=== PATIENT | male | born 1955 | race Caucasian/White ===

== ENCOUNTER → 2016-05-21 | Day surgery (SDC) | payer BC ==
[~2016-05-21] MED LIST: ALBUTEROL17 GM INH; ASPIRIN81 M2 PO; CORTISONE CREAM; DOXYCYCLINE; ELMIRON100 MG PO; ENBREL50 MG/M1 SUBQ; ENSTILAR 0.005%60 GM TOP; FLOMAX0.4 M1 PO; OMEGA 3 FISH1 CAP.EC PO; TUMS; TUMS500 M1 PO
--- NOTE | ~2016-05-21 | OR ---
Unit #: [id number] #: [id number] Patient: SAUL BATRES [id number] [address] [place], [place] [address] [id number] O MR#: [id number] NAME: SAUL BATRES ROOM: Date of Procedure: 05/21/2016 Admission Date: 05/21/2016 Surgeon: Elbert Adams M.D. : 1955 Attending Physician: Elbert Adams M.D. Primary Care Physician: Betty Vaughn M.D. OPERATIVE REPORT PRIMARY CARE PHYSICIAN Betty Vaughn M.D. PREOPERATIVE DIAGNOSIS Colorectal cancer screening in an average-risk patient. PROCEDURE PERFORMED Colonoscopy up to cecum with fair prep and visualization. POSTOPERATIVE DIAGNOSES The patient had mild sigmoid and descending colon diverticulosis. Otherwise, examination was normal up to cecum. The quality of the prep was fair. The patient had thin film of stool residue in the right colon, which had to be frequently washed and suctioned. As a result, diminutive polyps in this area could have been missed; however, no sizable polyps or colon cancer could have been missed. RECOMMENDATIONS Repeat colonoscopy in 5 years. SEDATION USED MAC. DESCRIPTION OF PROCEDURE Following detailed explanation of potential risks and complications of a colonoscopy, namely perforation, bleeding, and complications related to sedation, the patient was brought to GI lab and laid in the left lateral decubitus position. A digital rectal examination was performed, which was normal. Lubricated tip of the Olympus video colonoscope was inserted through the anus and advanced under direct vision. The scope was advanced past rectosigmoid into descending colon. A small to medium sized diverticula were seen scattered in this area. The scope tip was then navigated all the way up to cecum with visualization of the ileocecal valve and the appendiceal orifice. Preparation was fair with good visualization and photodocumentation was obtained. The patient had thin film of stool residue, which had to be frequently washed and suctioned in the right colon. Successive segments of the colonic mucosa were examined upon withdrawal and appeared unremarkable except for presence of diverticula seen in the left side. The patient did not have any polyps nor any angiodysplasias. No hemorrhoids were seen at the anal verge. The scope was then withdrawn and the patient returned to recovery area. He tolerated the procedure without any postprocedure complications. Unit #: [id number] #: [id number] Patient: SAUL BATRES Dictated by.Braden Diaz/wally TD: 05/21/2016 21:38 JOB #: [id number] OPERATIVE REPORT X Elbert Adams MD X PROCEDURE OPERATIVE NOTE
== END | disposition home or self-care (01) ==
LOC: COPS 06:55
PROVIDERS: Internal Medicine Gastroenterology
PROC: 0DJD8ZZ Inspection of Lower Intestinal Tract, Via Natural or Artificial Opening Endoscopic (ICD-10-PCS; principal; 2016-05-21 08:30)
DX: Z12.11 Encounter for screening for malignant neoplasm of colon (principal); K57.30 Diverticulosis of large intestine without perforation or abscess without bleeding; Z80.0 Family history of malignant neoplasm of digestive organs; K21.9 Gastro-esophageal reflux disease without esophagitis; E11.9 Type 2 diabetes mellitus without complications; N40.0 Benign prostatic hyperplasia without lower urinary tract symptoms; N30.10 Interstitial cystitis (chronic) without hematuria; I71.4 Abdominal aortic aneurysm, without rupture; L40.9 Psoriasis, unspecified; Z79.899 Other long term (current) drug therapy; Z79.82 Long term (current) use of aspirin; Z79.2 Long term (current) use of antibiotics; J45.909 Unspecified asthma, uncomplicated; Z88.0 Allergy status to penicillin; Z88.8 Allergy status to other drugs, medicaments and biological substances; Z96.652 Presence of left artificial knee joint
CPT/HCPCS: 82947; J2250

== ENCOUNTER → 2016-11-04 | Outpatient (CLI) | payer BC ==
--- NOTE | ~2016-11-04 | CT57 ---
[facility] A Service of [facility] & [facility] RADIOLOGY TEXT RESULTS PATIENT: SAUL BATRES LOCATION: [facility] : 57 UNIT #: [id number] AGE: [address]: Wander Jacob MD SEX: M ORDER DR: [id number] [facility] [address] [place], [place] [address] [id number] O MR#: [id number] [facility] #: [id number] NAME: SAUL BATRES : 1955 SEX: M STUDY DATE/TIME: 11/04/2016 13:37 UNIT: [facility] ROOM: STUDY DESCRIPTION: CT Chest Wo Cont Attending Physician: Wander Jacob M.D. Referring Physician: Wander Jacob M.D. Ordering Physician: Wander Jacob M.D. Primary Care Physician: Betty Vaughn M.D. MEDICAL IMAGING REPORT This report is preliminary unless electronic signature is present EXAM CT of the chest without contrast INDICATIONS Aortic aneurysm. Comparison is made to last year's exam from October 21, 2015. TECHNIQUE Axial CT images were obtained from the thoracic inlet through the dome of the diaphragm. No intravenous contrast material was administered. This CT exam was performed with one or more of the following radiation dose reduction techniques: Automatic exposure control, adjustment of mA and/or kV according to patient size, and iterative reconstruction. FINDINGS Ascending thoracic aorta is stable in size at 4.6 cm, proximal descending thoracic aorta is also stable at 3.2 cm. Aortic root may be slightly more dilated at 4.1 cm, previously 4 cm. The distal aorta tapers to normal caliber. The thyroid gland, trachea and esophagus appear unremarkable. There are extensive dystrophic calcifications involving the aortic valve and annulus. Mediastinal lymph nodes do not appear pathologically enlarged; there is no pleural or pericardial effusion. Coronary artery calcifications are present. No suspicious pulmonary nodules or masses are seen and there are no infiltrates. No acute abnormalities are seen within the upper abdomen. There is some colonic diverticulosis; there is no evidence of diverticulitis within the visualized segments of the bowel. No aggressive osseous abnormalities are seen. [facility] A Service of [facility] & [facility] RADIOLOGY TEXT RESULTS PATIENT: SAUL BATRES LOCATION: [facility] #: [id number] : 57 UNIT #: [id number] AGE: [address]: Wander Jacob MD SEX: M ORDER DR: IMPRESSION Stable aneurysmal dilatation of the ascending thoracic aorta and junction of the proximal descending thoracic aorta and distal arch and the patient's distal abdominal aorta tapers to normal caliber. There is also some dilatation of the aortic root, which may be marginally increased when compared to the prior exam measuring about 4.1 cm, previously 4 cm. Dictated by... Anna Michele M.D. THIS IS AN ELECTRONICALLY VERIFIED REPORT Anna Michele M.D. at 11/05/2016 4:59 PM AFF/psc TD: 11/05/2016 00:43 JOB #: [id number] MEDICAL IMAGING REPORT Page 1 of 1 COPY
== END | disposition home or self-care (01) ==
LOC: CECH 12:34
DX: I71.2 Thoracic aortic aneurysm, without rupture (principal); I51.7 Cardiomegaly; I35.1 Nonrheumatic aortic (valve) insufficiency; I34.0 Nonrheumatic mitral (valve) insufficiency; I36.1 Nonrheumatic tricuspid (valve) insufficiency; I77.810 Thoracic aortic ectasia; Z88.0 Allergy status to penicillin
CPT/HCPCS: 71250; 93306